=== PATIENT | male | born 1955 | race Caucasian/White ===

== ENCOUNTER 2016-12-10 09:57 | Day surgery (SDC) | payer OTHER ==
[~2016-12-10] VITALS: Ht 177.8 cm; Wt 74.8 kg
[~2016-12-10 09:57] MED LIST: 0.9% Sodium Chloride 1,000 ML IV SCH; ALBU18HF INH; AMIO200T PO; CARV12.5 PO; CARV25TA2 PO; FUR20 PO; GABA800T2 PO; IPRA4AER IH; KEN25CR TOPICAL; LOSA25TA21 PO; MEMA10TA20 PO; NAM10 PO; NITR0.4T SL; OXYC10TA8 PO; PANT40TA3 PO; PRAV40TA PO; SPIR25TA3 PO; Sodium Chloride LOK Flush 10 mL Syringe IV PRN; WARF5TAB7 PO; fentaNYL-PF 50 mCg/mL 2 mL Inj IVPUSH PRN
[2016-12-10 11:05] VITALS: BP 128/81; PULSE 62; RESP 16; O2SAT 95
--- NOTE | 2016-12-10 12:44 | PCM.ENDCOL ---
Colonoscopy Date of Service: Dec 10, 2016 Physician Brodie Barillas MD Indication for Procedure Personal history of colon polyp Post Procedure Dx & Findings: Polyps hemorrhoids diverticula Procedure Colonoscopy Prep adequate Withdrawal 19 minutes PROCEDURE IN DETAIL: After unremarkable rectal examination Olympus video colonoscope was inserted into patient's anal canal is advanced to cecum. Landmarks were identified including the ileocecal valve and appendiceal orifice. Scope further events the terminal ileum due to his history of terminal ileum polyp. We advanced to about 5-6 cm. Terminal ileum showed normal villous structures with normal appearing folds. No masses ulcers or erosions or polyps noted. The mucosa of the cecum, ascending, transverse, descending, sigmoid, rectal mucosa lined with whitish, pink, smooth, glistening, normal-appearing mucosa, normal fine branching, underlying vascularity, normal haustra. The patient tolerated procedure and was transported to observation area. In the ascending colon, there was a 5 mm polyp which was resected completely using cold snare. In the transverse colon there was another 5 mm polyp which was resected completely using cold snare. In the descending colon there was a 2 mm polyp which was resected completely using cold snare. In the sigmoid colon and to some extent to the proximal ascending colon there were multiple diverticuli medium-sized. But mostly these were scattered in the sigmoid colon. In the rectum retroflexion was done which showed hemorrhoids and anal canal was inspected carefully in the white count and hemorrhoids noted. Impression Polyps 3 status post complete removal Hemorrhoids Diverticula Personal history of colon polyp Recommendation Repeat colonoscopy 3 years Diverticular diet Presedation Assessment Risks and Benefits Informed consent was obtained from the patient after all risks and benefits including but not limited to drug reaction, infection, pain, bleeding, perforation, as well as alternatives were discussed. Patient monitoring Continuous pulse oximetry, cardiac monitoring, blood pressure monitoring, IV access, and oxygen at 2L per nasal cannula. Periprocedural Fentanyl: Fentanyl 125mcg Incrementally Midazolam: Midazolam 5mg Incrementally Complications There were no periprocedural complications identified. Post Procedure Plan Post Procedure Recommendations 1. Restrict activities today. 2. Resume normal activities in the morning. 3. Resume medications. 4. Patient informed of normal post procedure side effects as bloating, drowsiness, blood streaking in the stool. 5. average risk CRCS. If colon polyps come back as: -Hyperplastic- can repeat colonoscopy in 10 years -Tubular adenoma- repeat colonoscopy in 5 years -Tubulovillous/villous adenoma- repeat colonoscopy in 3 years -If any dysplasia- return to clinic as soon as possible 6. Please don't hesitate to call me with any questions. Brodie Barillas MD Dec 10, 2016 12:44
[2016-12-10 12:45] VITALS: BP 119/76; PULSE 61; RESP 16; O2SAT 96
[2016-12-10 12:55] VITALS: BP 140/85; PULSE 59; RESP 16; O2SAT 98
[2016-12-10 13:05] VITALS: BP 134/89; PULSE 61; RESP 16; O2SAT 95
--- NOTE | 2016-12-11 17:24 | PATH ---
SURGICAL PATHOLOGY Attending Physician:Brodie Barillas M.D. CASE STATUS: Signed Out PATIENT NAME: MARTHA GRIFFITH PID: [id number] : 1955 DATE COLLECTED:12/10/2016 23:22 SPECIMEN: 1: Colon, Biopsy 2: Colon, Biopsy 3: Colon, Biopsy CLINICAL HISTORY: 1). ASCENDING COLON POLYP X1 2). TRANSVERSE COLON POLYP X1 3). DESCENDING COLON POLYP FINAL DIAGNOSIS: 1. Ascending Colon Polyp x1, Biopsy: Tubular adenoma. 2. Transverse Colon, Polyp x1, Biopsy: Tubular adenoma. 3. Descending Colon, Polyp, Biopsy: Tubular adenoma. ICD10 D12.2, D12.3, D12.4 GROSS DESCRIPTION: The specimen is received in three formalin filled containers labeled with the patient's name. 1). The specimen is sublabeled "ascending colon polyp x1" and consists of 2 portions of tissue which aggregate to 0.4 x 0.4 x 0.4 CM. The specimen is entirely submitted in cassette 1A. 2). The specimen is sublabeled "transverse colon polyp" and consists of a 0.3 x 0.3 x 0.3 CM portion of tissue which is entirely submitted in cassette 2A. 3). The specimen is sublabeled "descending colon polyp" and consists of a 0.2 x 0.2 x 0.1 CM portion of tissue which is entirely submitted in cassette 3A. 12/11/2016 [facility] ICD-9 CODES: CPT CODES: 1: 70882 2: 65836 3: 12460 Electronically Signed Out Isis Chung MD [facility] [address], [place] [address] Technical component performed at [facility], [facility] [address], [place], [address]
== END 2016-12-10 23:59 | disposition home or self-care (01) ==
LOC: END 09:57
PROVIDERS: ATTEND Internal Medicine
DX: Z12.11 Encounter for screening for malignant neoplasm of colon (principal); Z86.010 Personal history of colon polyps; D12.2 Benign neoplasm of ascending colon; D12.4 Benign neoplasm of descending colon; D12.3 Benign neoplasm of transverse colon; K57.90 Diverticulosis of intestine, part unspecified, without perforation or abscess without bleeding; K64.9 Unspecified hemorrhoids; I50.9 Heart failure, unspecified; I10 Essential (primary) hypertension; I25.10 Atherosclerotic heart disease of native coronary artery without angina pectoris; I42.9 Cardiomyopathy, unspecified; Z95.810 Presence of automatic (implantable) cardiac defibrillator; Z79.01 Long term (current) use of anticoagulants; J44.9 Chronic obstructive pulmonary disease, unspecified; J45.909 Unspecified asthma, uncomplicated
CPT/HCPCS: 45385; 88305; 99153; G0500; J2250; J3010; J7030

== ENCOUNTER 2017-05-10 11:38 | Day surgery (SDC) | payer OTHER ==
[~2017-05-10] VITALS: Ht 182.9 cm; Wt 64.0 kg
[~2017-05-10 11:38] MED LIST changes: -0.9% Sodium Chloride 1,000 ML IV SCH; -CARV12.5 PO; -LOSA25TA21 PO; +Lactated Ringer's 1,000 ML IV ONE; -NAM10 PO; -Sodium Chloride LOK Flush 10 mL Syringe IV PRN; -fentaNYL-PF 50 mCg/mL 2 mL Inj IVPUSH PRN
[2017-05-10] MEDS ORDERED: Propofol 10,000 mCg/mL 20 mL Inj ONE (11:39)
[2017-05-10 12:07] VITALS: BP 137/92; PULSE 60; RESP 16; O2SAT 95
[2017-05-10] MEDS ORDERED: Albuterol 2.5 mg/3 mL Inhalation Solution NEB ONE (12:17)
[2017-05-10] MEDS ORDERED: Lactated Ringer's 1,000 ML IV SCH (12:20)
[2017-05-10] MEDS ORDERED: MetoCLOpramide 5 mg/mL 2 mL Inj IVPUSH PRN (12:20)
[2017-05-10] MEDS ORDERED: Albuterol-Ipratropium 3 mL Inhalation Solution NEB PRN (12:20)
[2017-05-10] MEDS ORDERED: Ondansetron 2 mg/mL 2 mL Inj IVPUSH PRN (12:20)
[2017-05-10 12:59] VITALS: BP 71/53; PULSE 62; RESP 14; O2SAT 97
[2017-05-10 13:03] VITALS: BP 96/68
[2017-05-10 13:22] VITALS: BP 95/67; PULSE 64; RESP 16; O2SAT 95
[2017-05-10 13:32] VITALS: BP 121/75; PULSE 67; RESP 16; O2SAT 98
[2017-05-10 13:42] VITALS: BP 136/78; PULSE 51; RESP 20; O2SAT 93
--- NOTE | 2017-05-10 16:46 | PCM.HPANE ---
Patient Data Surgeon Admitting Provider: Attending Provider:Blanco Dominguez MD Primary Care Physician:Cherise Wheeler MD Other Provider:Lily Mathis Anesthesia Reason for Visit GERD Ht/WT & BMI Height (Feet): 6 Height (Inches): 0 Weight (Kilograms): 63.96 Body Mass Index 19.00 Allergies Coded Allergies: codeine (Verified Allergy, Severe, itches, nauseated, 05/07/17) adhesive tape (Verified Allergy, Unknown, 05/07/17) latex (Verified Allergy, Unknown, UNKNOWN, 05/07/17) Past Anesthesia History Anesthesia History: Denies:: Abnormal Airway, Anesthesia Reactions, Difficult Intubation, Fam Anesthesia Reaction, Fam Malignant Hypertherm, Malignant Hyperthermia Diabetes History Hx Diabetes?: No MRSA MRSA: No Medications Blood Thinner: Plavix Last Dose Blood Thinner: May 07, 2017 Home Meds Incl Beta Matti: Yes Date Beta Matti Taken: May 10, 2017 Time Beta Matti Taken: 0830 Reported Medications Memantine HCl 10 Mg Qrwddj93 Mg PO BID 04/01/16 oxyCODONE 10 Mg Mzmzhp96 Mg PO Q4H PRN For Pain Ref 0 04/01/16 Triamcinolone Acet (Triamcinolone Acetonide Cream)1 Applic/0.25 Gm Cr1 Applic TOPICAL BID #60 GM Ref 0 11/21/15 Spironolactone 25 Mg Fwwczz73 Mg PO DAILY #30 TABLET Ref 0 10/28/15 Furosemide 20 Mg Tab20 Mg PO DAILY 30 Days Ref 0 Take lasix 20mg PO for weight gain of 2# or more in a single night. 10/28/15 Amiodarone 200 Mg Movsnv237 Mg PO DAILY Ref 0 10/28/15 Warfarin Sodium 5 Mg Tablet5 Mg PO DAILY 30 Days Ref 0 07/29/15 Carvedilol 25 Mg Qhfipk58.5 Mg PO BID Ref 0 07/29/15 Gabapentin 800 Mg Fwniqp344 Mg PO TID Ref 0 07/29/15 Nitroglycerin SL (Nitrostat)0.4 Mg Tab.subl0.4 Mg SL Q5MIN PRN For Chest Pain 10/24/14 Albuterol Sulfate (Ventolin HFA Inhaler)200 Puff/18 Gm Inhaler2 Puff INH Q4-6H PRN For Wheezing 10/24/14 Pravastatin 40 Mg Uetngo24 Mg PO DAILY 10/24/[address] 40 Mg Tablet.dr40 Mg PO DAILY 10/24/14 Albuterol/Ipratropium (Combivent Respimat Inhal [place])120 Spr/4 Gm Inhaler1 Puff IH QID Ref 0 10/24/14 Discontinued Reported Medications Memantine (Namenda)10 Mg Ggduyv56 Mg PO BID 30 Days Ref 0 12/09/16 Discontinued Scripts Losartan Potassium 25 Mg Frkbud69.5 Mg PO DAILY #30 TABLET Ref 1 Take one half tab (12.5 mg) daily Prov:Paul Cerrato MD 07/31/15 History History of ENT Problems?: Yes HEENT History: Positive for:: Dysphagia (OCC. ) Hearing Problem Denies:: Abnormal Airway Cataracts Difficult Intubation Sinus Problem Denture Type: None Teeth Condition: Within Normal Limits Hx of Heart Problems?: Yes Cardiovascular History: Positive for:: AICD Atrial Fibrillation Cardiac Surgery (HEART CATH 06/2012 ICD 07/2012) Congestive Heart Failure Edema (PEDAL) Heart Murmur (ECHO 03/2012) Hypertension Irregular Heartbeat (afib ) Pacemaker Rheumatic Fever (??POSSIBLY) Denies:: Chest Pain Thrombophlebitis (S/P VEIN STRIPPING/LEG) Valvular Heart Disease Other Cardiac History: CHF CAD Hx of Respiratory Problem?: Yes Respiratory History: Positive for:: Asthma COPD Dyspnea Denies:: Chest Surgery Cough Emphysema Hemoptysis Pneumonia Tuberculosis Use of C-PAP Machine (SNORES) Hx Neurologic Problems?: Yes Neurological History: Positive for:: Dizziness (on and off ) Headaches Denies:: Alzheimer's Disease CVA Dementia Parkinson's Disease Seizures Hx of GI Problems?: Yes Hx of Problems?: Yes Genitourinary History: Denies:: HX of Hemodialysis Kidney Stones Urinary Tract Infection Male Hx: Denies:: Prostate Problems Scrotal Mass Testicular Surgery Skin History: Denies:: History Skin Disorders? Pressure Ulcers Hx Musculoskeletal Problems?: Yes Musculoskeletal History: Positive for:: Back Injury (C/OF BACK PAIN) Degenerative Joint (MULTIPLE JOINTS) Musculoskeletal Trauma (S/P ORIF RT ANKLE,LT HIP RPR) Denies:: Fibromyalgia Joint Replacement Hx of Psycho/Social Problems?: No Psycho Social History: Positive for:: Hx Depression (SOMEWHAT) Denies:: Anxiety Bipolar Disorder Suicide Attempt Hx Surgeries?: Yes (BROKEN ANKLE, BROKEN ARM, COLONOSCOPY) Hx Any Other Health Problems?: Yes Other History: Positive for:: Hospitalization (CARDIAC/BLEEDING) Denies:: Cancer Endocrine Disease Thyroid Disease History Blood Transfusions: Denies:: Blood Transfuse Reaction Blood Transfusions Hx Diabetes: No Hx Alcohol Use: NoHx Substance Use: No Smoking Status: Current Every Day Smoker Have You Smoked inLast 12 mo: Yes Stop/Bang Treated for Sleep Apnea?: No Do You Have a CPAP Machine?: No S-Snoring: Do You Snore Loudly: No T-Tired: feel tired, fatigued: No O-Obsered: Observed not breath: No P-Blood Pressure: treated: Yes B- Body Mass Index > 35 kg/m2: No A- Age over 50: Yes N- Neck Large Circumference: No G- Gender Male: Yes JEAN CLAUDE Total Score: 3 Risk Assessment Category Category 1A: Patient has history of documented sleep apnea, and HAS NOT received any narcotic, sedative or anesthesia administration during this stay. Category 1B: Patient has history of documented sleep apnea, and HAS received any narcotic , sedative or anesthesia administration during this stay Category 2: Patient has SUSPECTED Obstructive Sleep Apnea, and HAS received any narcotic , sedative or anesthesia administration during this stay. Category 3: Patient has SUSPECTED Obstructive Sleep Apnea and HAS NOT received narcotic, sedative or anesthesia administration during this stay. Category 4: Outpatient in Procedural Areas with known sleep apnea or who screen positive for High Risk via the STOP/BANG questionnaire. Exam Exam Vital Signs Vital Signs Date Time Temp Pulse Resp B/P Pulse Ox O2 Delivery O2 Flow Rate FiO2 05/10/17 12:07 60 16 137/92 95 Room Air General Appearance: Alert, Oriented X3, Cooperative, No Acute Distress HEENT/AIRWAY: MP 2 Lungs: Diminished Heart: Other (Pacemaker AICD) Meds/Labs/Diagnostics Admission Meds Current Medications Lactated Ringer's (Lr) 1,000 ml @ 10 mls/hr Q24H ONCE IV Last administered on 05/10/17t 12:08; Start 05/10/17 at 06:00; Stop 05/11/17 at 05:59 Plan Impression Patient chart reviewed, patient interviewed and anesthestic plan with risks, benefits, and alternatives discussed, and informed consent obtained. NPO per Anesth. Guidelines: Yes ASA Physical Status: ASA3 Severe Disease (CAD COPD) Anesthetic Plan: GA Bene/Risks/Altern/Consents: Yes HP Complete Prior to Induction: Yes Sullivan,Dino MD May 10, 2017 12:19
--- NOTE | 2017-05-10 16:47 | PCM.ANEP1 ---
Post Anesthesia PACU Phase 1 Assessment Vital Signs Vital Signs Date Time Temp Pulse Resp B/P Pulse Ox O2 Delivery O2 Flow Rate FiO2 05/10/17 13:42 51 20 136/78 93 Room Air 05/10/17 13:32 67 16 121/75 98 Room Air 05/10/17 13:22 64 16 95/67 95 Room Air 05/10/17 13:03 96/68 05/10/17 12:59 36.5 62 14 71/53 97 Nasal Cannula 5 05/10/17 12:07 60 16 137/92 95 Room Air Anesthetic Administered: GA Level of Alertness: Awake, talking SILVA's with Equal Strength: Yes Pain: Yes Nausea or Vomiting: No CV Function & Hydration Stable: Yes Airway Device: Oxygen Delivery: Room Air Lungs: Diminished Dermatome Level: Full Sensation PACU Phase 2 Assessment Complications: No Follow up Care: N/A Patient Instructions Provided: N/A Madhu Sullivan MD May 10, 2017 16:47
--- NOTE | 2017-05-10 21:12 | ENDO ---
[address] [address] ENDOSCOPY PROCEDURE PATIENT: MARTHA GRIFFITH : 1955 MR#: [id number] ADMIT: 05/10/2017 JOB ID: [id number] DATE OF SERVICE: 05/10/2017 PRIMARY CARE PHYSICIAN: Cherise Wheeler MD PROCEDURE: Esophagogastroduodenoscopy with biopsies. INDICATIONS: A 61-year-old male with symptoms of unexplained nausea, vomiting, abdominal pain along with weight loss. EQUIPMENT: GIF H 180 J. SEDATION: Monitored anesthesia as provided by Dr. Madhu Sullivan. COMPLICATIONS: None identified. PROCEDURE IN DETAIL: After the risks and benefits were explained, written and verbal informed consent was obtained. The patient was brought into the endoscopy suite and placed into the left lateral decubitus position. Sedation was achieved as above. The scope was introduced into the mouth through the bite block, and advanced to the second portion of the duodenum. The scope was slowly withdrawn to carefully examine the mucosa for any defects or lesions. Retroflexed views were accomplished in the stomach. The stomach was decompressed. The scope removed from the patient who tolerated the procedure well. FINDINGS: 1. Duodenum: Fairly sharply angulated corner going from D1 to D2. However, no mucosal pathology. Considering the weight loss and symptoms, random duodenal biopsies were taken for exclusion of sprue. 2. Stomach: No outlet obstruction. No ulcers. No mass lesions. The patient had streaks of erythema all throughout the antrum consistent with mild GAVE. Otherwise, retroflexed views of the LES were unremarkable. Random gastric biopsy was taken considering the gastropathy seen for exclusion of Helicobacter or other pathology. There was a small sliding hiatal hernia noted in retroflexed views. 3. Esophagus: In the 9-10 o'clock location, there was a tongue of possible Bañuelos's where the squamocolumnar junction extended north of the GE junction. This area was targeted for biopsy. I, however, did not see any sign of active esophagitis, stricturing, ulceration, nodularity or neoplasia. The GEJ was at about 43 cm from the incisors and the remainder of the esophagus was unremarkable. ENDOSCOPIC DIAGNOSES: 1. Hiatal hernia. 2. 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 3. Gastropathy. RECOMMENDATIONS: 1. Await histopathology. 2. If Helicobacter is found, it will need to be eradicated with standard triple therapy. 3. No obvious explanation was made for the patient's symptoms today. Colonoscopy is up to date by Dr. Barillas. I note he had an ultrasound which showed a 1 cm gallbladder polyp and I agree that surgical consultation would be recommended. However, in advance of that, I would recommend he have further abdominal imaging with CT of abdomen and pelvis with IV contrast. This was ordered from endo today. 4. Follow up in GI clinic within a week of the scan. 5. The patient is authorized to restart his Coumadin tomorrow night.
== END 2017-05-10 23:59 | disposition home or self-care (01) ==
LOC: END 11:38
PROVIDERS: ATTEND Internal Medicine Gastroenterology
DX: K29.50 Unspecified chronic gastritis without bleeding (principal); K21.9 Gastro-esophageal reflux disease without esophagitis; I11.0 Hypertensive heart disease with heart failure; I50.9 Heart failure, unspecified; I25.10 Atherosclerotic heart disease of native coronary artery without angina pectoris; E78.5 Hyperlipidemia, unspecified; I42.9 Cardiomyopathy, unspecified; I48.1 Persistent atrial fibrillation; I25.2 Old myocardial infarction; E55.9 Vitamin D deficiency, unspecified; G31.84 Mild cognitive impairment of uncertain or unknown etiology; Z95.810 Presence of automatic (implantable) cardiac defibrillator
CPT/HCPCS: 43239; J7120; J7613